=== PATIENT | male | born 1965 | race Caucasian/White ===

== ENCOUNTER 2016-07-30 11:36 | Emergency (ER) | payer OTHER ==
--- NOTE | ~2016-07-30 | EKG ---
PATIENT: HECTOR KNOWLES UNIT #: [id number] Ventricular Rate: 103 BPM Atrial Rate: 103 BPM P-R Interval: 132 ms QRS Duration: 86 ms Q-T Interval: 344 ms QTC Calculation(Bezet): 450 ms P [place]: 62 degrees Calculated R [place]: 67 degrees Calculated T [place]: 43 degrees Diagnosis Line: Sinus tachycardia Diagnosis Line: Otherwise normal ECG Diagnosis Line: Diagnosis Line: Confirmed by SPENCER ANTONIO MD ([id number]) on Diagnosis Line: 07/30/2016 3:51:10 PM INTERPRETING MD: MARISELA SAM
--- NOTE | ~2016-07-30 | CR72 ---
[facility] A Service of [facility] & [facility] RADIOLOGY TEXT RESULTS PATIENT: HECTOR KNOWLES LOCATION: [facility] : [birth year] UNIT #: [id number] AGE: [address]: Costa Morton MD SEX: M ORDER DR: [id number] [facility] [address] [place], [place] [address] [id number] MR#: [id number] #: [id number] NAME: HECTOR KNOWLES. : 1965 SEX: M STUDY DATE/TIME: 07/30/2016 14:13 UNIT: [facility] ROOM: STUDY DESCRIPTION: CR Chest Single View Portable Attending Physician: Costa Morton M.D. Ordering Physician: Costa Morton M.D. Primary Care Physician: Hunter Hagan M.D. MEDICAL IMAGING REPORT This report is preliminary unless electronic signature is present EXAM AP portable chest, 07/30. COMPARISON 12/06/10 HISTORY SUPPLIED Weakness, shortness of breath left-sided chest pain for 4 days. AP portable view is obtained. The cardiovascular configuration is normal and the lungs are clear. CONCLUSION Negative portable chest. Dictated by... Remy Herrera M.D. THIS IS AN ELECTRONICALLY VERIFIED REPORT Remy Herrera M.D. at 07/31/2016 5:02 PM SAMRA/john paul TD: 07/30/2016 18:13 JOB #: [id number] MEDICAL IMAGING REPORT Page 1 of 1 COPY
[~2016-07-30 11:36] MED LIST: METOPROLOL TAR25 MG PO
[2016-07-30 12:17] LABS: BASOPHIL% 0.5 % (0-2.5); EOSINOPHIL% 0.2 % (0.0-7.0); HEMATOCRIT 45.2 % (38.0-50.0); HEMOGLOBIN 15.2 gm/dL (13.0-16.0); LYMPHOCYTE% 16.7 % (17.0-45.0); MEAN CELL VOLUME 89.2 FL (83-96); MEAN CORPUSCULAR HEMOGLOBIN 30.1 PG (28-34); MEAN CORPUSCULAR HGB CONC 33.7 g/dL (30-36); MONOCYTE# 0.7 X10e3 (0-1.0); MONOCYTE% 11.1 % (3.0-12.0); NEUTROPHIL# 4.2 X10e3 (1.5-7.1); NEUTROPHIL% 71.5 % (40-75); PLATELET COUNT 261 X10e3 (140-420); RED BLOOD COUNT 5.07 X10e (3.90-5.60); RED CELL DISTRIBUTION WIDTH 13.3 % (11.0-15.5); WHITE BLOOD COUNT 5.9 X10e3 (4.0-10.5)
[2016-07-30 12:19] LABS: DIFF IND NO
[2016-07-30 12:40] LABS: BILIRUBIN, DIRECT 0.1 mg/dL (0.0-0.2); BILIRUBIN,INDIRECT 0.4 mg/dL (0.0-0.9); BILIRUBIN,TOTAL 0.5 mg/dL (0.2-2.0); CALCIUM SERUM 8.9 mg/dL (8.4-10.2); CREATININE SERUM 0.8 mg/dL (0.6-1.4); GLOM FILT RATE Estimated 104.2 mL/min (>60); POTASSIUM 3.8 mmol/L (3.5-5.1); PROTEIN TOTAL SERUM 7.6 g/dL (6.0-8.3)
== END 2016-07-30 15:45 | disposition home or self-care (01) ==
LOC: CED 11:36 → EDBD 13:33 → CED 15:45
PROVIDERS: Emergency Medicine
DX: S30.861A Insect bite (nonvenomous) of abdominal wall, initial encounter (principal); E16.2 Hypoglycemia, unspecified; I10 Essential (primary) hypertension; F41.9 Anxiety disorder, unspecified; F17.200 Nicotine dependence, unspecified, uncomplicated; I25.2 Old myocardial infarction; M79.1 Myalgia
CPT/HCPCS: 36415; 71010; 80048; 80076; 82947; 85025; 86618; 93005; 99283

== ENCOUNTER 2016-08-03 20:29 | Inpatient (IN) | payer MEDICARE, OTHER ==
--- NOTE | ~2016-08-03 | EKG ---
PATIENT: HECTOR KNOWLES UNIT #: [id number] Ventricular Rate: 96 BPM Atrial Rate: 96 BPM P-R Interval: 134 ms QRS Duration: 88 ms Q-T Interval: 322 ms QTC Calculation(Bezet): 406 ms P [place]: 59 degrees Calculated R [place]: 90 degrees Calculated T [place]: 31 degrees Diagnosis Line: Normal sinus rhythm Diagnosis Line: Rightward axis Diagnosis Line: Borderline ECG Diagnosis Line: When compared with ECG of 03-AUG-2016 21:13, Diagnosis Line: (unconfirmed) Diagnosis Line: Premature ventricular complexes are no longer Diagnosis Line: Present Diagnosis Line: Confirmed by EMILIE ELIZABETH MD ([id number]) on Diagnosis Line: 08/04/2016 10:17:59 PM INTERPRETING MD: VITALY
--- NOTE | ~2016-08-03 | HP ---
Unit #: [id number] #: [id number] Patient: HECTOR KNOWLES [id number] [address] [address] [id number] I MR#: [id number] NAME: HECTOR KNOWLES ROOM: [facility] Age: 51 Sex: M Admission Date: 08/04/2016 : 1965 Attending Physician: Taylor Montalvo M.D. Primary Care Physician: Hunter Hagan M.D. HISTORY AND PHYSICAL CHIEF COMPLAINT Chest pain, cough and blood in the sputum. HISTORY OF PRESENT ILLNESS The patient is a 51-year-old male who has a history of hypertension, questionable arrhythmias, arthritis, tobacco abuse and came with a history of hemoptysis. The patient came to the emergency room three days ago and was diagnosed with pneumonia and was given doxycycline. Yesterday morning he woke up and was coughing a lot and had a lot of blood in the cough. He started having a lot of pain in the left side of the chest and also shortness of breath. He came back to the emergency room and was admitted for community acquired pneumonia, hemoptysis and failed oral antibiotics. Even now the patient is short of breath and complaining of pain while coughing. He is not able to cough because of the sharp pain. He does complain of fever. He complains of chills. He also had nausea and vomiting two days ago and now at this time is stable. He does not complain of any abdominal pain. PAST MEDICAL HISTORY 1. History of hypertension. 2. History of questionable arrhythmias. 3. History of arthritis. 4. Tobacco abuse. PAST SURGICAL HISTORY 1. History of umbilical hernia surgery. 2. History of inguinal hernia surgery on the left side. 3. History of right ankle surgery. SOCIAL HISTORY The patient is a smoker. He smokes a half pack per day. He started at the age of 21. No history of alcohol abuse or drug abuse. FAMILY HISTORY The patient's mother has diabetes type 2. One of his brothers has fibromyalgia. The patient's dad had liver cancer and throat cancer. He was alcoholic. ALLERGIES No known drug allergies. According to him doxycycline was causing palpitations. HOME MEDICATIONS 1. Metoprolol. Unit #: [id number] #: [id number] Patient: HECTOR KNOWLES 2. The patient was on doxycycline. REVIEW OF SYSTEMS As per history of present illness. Additionally, there is no history of ear or throat problem at this time. No history of dizziness or syncopal episodes. There is trace pedal edema according to the patient. No history of numbness or tingling. No history of vision issues. The rest is as per history of present illness. PHYSICAL EXAMINATION GENERAL: The patient is lying in bed. He is trying to cough and holding the left side of his chest. He seems to be short of breath. VITALS: Blood pressure 101/64, respiratory rate 18, pulse 98, temperature 99.2, oxygen saturation 95% on room air. The patient's blood pressure earlier was 98/64. HEENT: Normocephalic. Eye movements are normal. Pale conjunctivae. NECK: Supple. No carotid bruit. Trachea is midline. No thyromegaly. CHEST: Fair air entry on the right side. On the left mid and lower lobe crackles are present. Decreased air entry. HEART: S1 and S2 positive. Regular rhythm. ABDOMEN: Soft. No tenderness. No rigidity. No rebound. EXTREMITIES: Trace edema. NEUROLOGIC: The patient is awake, alert and oriented times three. No focal neurological deficits. DIAGNOSTIC STUDIES IMAGING: Chest x-ray shows moderately dense infiltrate in the left mid and lower lung, probably in the lingula, which is new compared to 07/30/2016. LABORATORY: White blood cell count 8.2, hemoglobin 15.0, hematocrit 44.1, platelets 152. Lactic acid 1.4. Sodium 131, potassium 3.1, chloride 97, BUN 14, creatinine 0.9. Liver enzymes are normal. Troponin is less than 0.05. Urine drug screen positive for benzodiazepines, amphetamines and opiates. ASSESSMENT The patient is being admitted to the telemetry unit with 1. Community acquired pneumonia. 2. Hemoptysis. 3. Left chest pain, most likely pleuritic and musculoskeletal. 4. Hypokalemia. 5. Tobacco abuse. 6. Hypertension. PLAN Admit to telemetry unit. IV Rocephin 1 g q.24 h. and IV Zithromax 500 mg daily is being started. Blood cultures times two are being done. CT scan of the chest without contrast will be done. Lovenox 40 mg subcutaneous daily is being done. Dr. Alberts will be consulted. Procalcitonin level is being done. Labs will be repeated tomorrow morning. Potassium will be replaced. Symptomatically we are going to give him Tussionex for cough and pain control. Continue Tylenol on a p.r.n. basis. Tobacco cessation counseling has been done. The plan of care has been discussed with the patient at length. He does verbalize understanding. Unit #: [id number] #: [id number] Patient: HECTOR KNOWLES Dictated by Samira Marx TD: 08/04/2016 13:22 JOB #: [id number] HISTORY AND PHYSICAL Page 1 of 1 X Taylor Montalvo MD X HISTORY AND PHYSICAL
--- NOTE | ~2016-08-03 | CT57 ---
[facility] A Service of [facility] & [facility] RADIOLOGY TEXT RESULTS PATIENT: HECTOR KNOWLES LOCATION: [facility] 314-01 : [birth year] UNIT #: [id number] AGE: [address]: Taylor Montalvo MD SEX: M ORDER DR: [id number] [facility] [address] [place], [place] [address] [id number] I MR#: [id number] #: [id number] NAME: HECTOR KNOWLES. : 1965 SEX: M STUDY DATE/TIME: 08/04/2016 14:21 UNIT: [address] ROOM: [facility] STUDY DESCRIPTION: CT Chest Wo Cont Attending Physician: Taylor Montalvo M.D. Ordering Physician: Taylor Montalvo M.D. Primary Care Physician: Hunter Hagan M.D. MEDICAL IMAGING REPORT This report is preliminary unless electronic signature is present EXAM CT chest without contrast HISTORY Shortness of air and pneumonia today. Hemoptysis and left side chest pain. This CT exam was performed with one or more of the following radiation dose reduction techniques: automatic exposure control, adjustment of mA and/or kV according to patient size, and iterative reconstruction. FINDINGS CT chest without contrast demonstrates moderately extensive infiltrate in the posterior left upper lobe extending to the posterior lingula, including dense opacification of the posterior inferior margins of the lingula, corresponding to a similar finding on chest x-ray yesterday. There is a very small left pleural effusion and there is mild atelectasis in the posterior left lower lobe. Mild subpleural emphysema in the lung apices. Mildly enlarged subcarinal node measures 1.3 cm, and contiguous, mildly enlarged azygoesophageal recess node measures 1.4 cm. Additional small subcentimeter calcified mediastinal and left hilar nodes. Normal caliber thoracic aorta. Very small pericardial effusion. IMPRESSION 1. Extensive dense infiltrate in the left upper lobe and lingula corresponds to a similar finding on chest x-ray yesterday. This is nonspecific but considerations include pneumonia. Correlation the patient's history and symptoms is recommended and short-term followup chest x-ray is suggested. 2. Small left pleural effusion. 3. No additional infiltrates. Incidental mild atelectasis posterior left lower lobe. 4. Mild adenopathy in the subcarinal space and azygoesophageal recess. [facility] A Service of [facility] & [facility] RADIOLOGY TEXT RESULTS PATIENT: HECTOR KNOWLES LOCATION: [facility] 314-01 : [birth year] UNIT #: [id number] AGE: [address]: Taylor Montavlo MD SEX: M ORDER DR: These are nonspecific and could be reactive or inflammatory. Dictated by... William Gates M.D. THIS IS AN ELECTRONICALLY VERIFIED REPORT William Gates M.D. at 08/05/2016 3:02 PM ELAINE/ni TD: 08/05/2016 03:51 JOB #: [id number] MEDICAL IMAGING REPORT Page 1 of 1 COPY
--- NOTE | ~2016-08-03 | EKG ---
PATIENT: HECTOR KNOWLES UNIT #: [id number] Ventricular Rate: 110 BPM Atrial Rate: 110 BPM P-R Interval: 138 ms QRS Duration: 90 ms Q-T Interval: 310 ms QTC Calculation(Bezet): 419 ms P [place]: 58 degrees Calculated R [place]: 60 degrees Calculated T [place]: 38 degrees Diagnosis Line: Sinus tachycardia with occasional Premature Diagnosis Line: ventricular complexes Diagnosis Line: Otherwise normal ECG Diagnosis Line: When compared with ECG of 30-JUL-2016 12:04, Diagnosis Line: Premature ventricular complexes are now Present Diagnosis Line: Confirmed by EMILIE ELIZABETH MD ([id number]) on Diagnosis Line: 08/04/2016 10:06:09 PM INTERPRETING MD: VITALY
--- NOTE | ~2016-08-03 | CO ---
Unit #: [id number] #: [id number] Patient: HECTOR KNOWLES [id number] [facility]. [place], [place] [address] [id number] I MR#: [id number] NAME: HECTOR KNOWLES ROOM: 314 Age: 51 Sex: M Admission Date: 08/04/2016 : 1965 Attending Physician: Taylor Montalvo M.D. Primary Care Physician: Hunter Hagan M.D. Consultation Date: 08/04/2016 CONSULTATION REPORT REASON FOR CONSULTATION Scant hemoptysis, pneumonia. HISTORY OF PRESENT ILLNESS 51-year-old gentleman who denies any history of lung disease, has had a several day history of increasing shortness of breath. He then has had scant hemoptysis over the last two or three days. he apparently came to the emergency room three days ago, diagnosed with pneumonia, given doxycycline. He had worsening symptoms and re-presented to the hospital where he was admitted. Now, his chest x-ray showed a definite left sided infiltrate. CAT scan was also performed. It shows a fairly densely consolidated area with less densely consolidation lingula. It has the appearance of a pneumonia. The patient has significant cough, shortness of breath and wheezing. PAST MEDICAL HISTORY Remarkable for hypertension, arthritis, ongoing active tobacco use. He has been at [facility] in the past for depression and substance use. MEDICATIONS Medications at home: 1. Metoprolol. 2. Recently given doxycycline. ALLERGIES No known medical allergies. SOCIAL HISTORY He smokes a pack of cigarettes a day. He does not drink. He does do meth. He said he last did meth about a week ago and he does smoke marijuana. FAMILY HISTORY Emphysema is present in his family. REVIEW OF SYSTEMS No fever, chills. He has had scant hemoptysis but that has resolved. Now, he is not producing any sputum. He does have this anterior left sided pain with inspiration. No anginal chest pain, palpitations. He did have nausea, vomiting and emesis about five days ago but that has resolved. He has no difficulty swallowing such as choking or coughing. No melena, hematochezia. He has noticed no blood in his urine. No focal weakness or paresthesia. He has had some minimal bilateral swelling of his feet. Further review of systems negative. Unit #: [id number] #: [id number] Patient: HECTOR KNOWLES PHYSICAL EXAMINATION GENERAL: Reveals a gentleman who is somewhat disheveled, in no acute distress. VITAL SIGNS: He is afebrile. Pulse is 106, respiratory rate 20, blood pressure is 107/78. 5 foot 11, 170 pounds. HEENT: Pupils equal, round, reactive to light. Sclerae anicteric. Head atraumatic. Neck supple. No supraclavicular or cervical adenopathy appreciated. Mucous membranes moist. He is edentulous. CHEST: Wheeze throughout. Scattered rhonchi. A few crackles. CARDIAC EXAMINATION: Regular rate and rhythm. No pathologic murmur, rub or gallop. ABDOMEN: Soft, nontender. No hepatomegaly or rebound. EXTREMITIES: No clubbing, cyanosis or edema. No calf tenderness. SKIN: Warm and dry without rash or diaphoresis. NEUROLOGICAL: Grossly intact. No focal muscle or sensory deficits. DIAGNOSTIC STUDIES IMAGING: Chest x-ray with left sided infiltrates. CT scan with significant bullous emphysema, left sided pneumonia although there is an area of dense consolidation. Although it does have air bronchograms, this area will have to be followed to clearance to exclude underlying mass. LABORATORY: BUN is 14, creatinine 0.9, potassium is 3.1. Lactic acid 1.2, INR 1.0. D-dimer was elevated at 1257. Cardiac enzymes negative. White blood cell count 8.2, hemoglobin 15, platelet count is 152. Tox screen - benzodiazepines, amphetamines and opiates although I do not think he has been prescribed any of those. Blood cultures performed and are pending. Sputum has been canceled as he cannot produce sputum. CARDIOVASCULAR: Rhythm strips have been sinus. IMPRESSION 1. Scant hemoptysis, most likely secondary to pneumonia. 2. Pneumonia, possibly pneumococcal. 3. Emphysema. 4. Tobacco abuse. 5. Polysubstance abuse. 6. History of depression. 7. Hypertension. PLAN Agree with current antibiotics. Will check legionella and Strep urine antigens. Treatment of his COPD. I will start steroids, nebulized bronchodilators and Dulera. I will check a urine for primarily hematuria although I doubt this represents pulmonary renal syndrome. I will check an alpha-1 antitrypsin level. Ultimately, he will need a repeat CAT scan in about two months to ensure clearance of his infiltrate. Also, he will need a bronchoscopy once his pulmonary status is better. This could be performed as an outpatient. Thank you very much for allowing me to participate in the care of Mr. Knowles. Unit #: [id number] #: [id number] Patient: HECTOR KNOWLES Dictated by... Samira Hurtado/mary TD: 08/05/2016 05:47 JOB #: [id number] CONSULTATION REPORT Page 1 of 1 X Shyam Alberts MD X CONSULTATION REPORT
--- NOTE | ~2016-08-03 | DS ---
Unit #: [id number] #: [id number] Patient: HECTOR KNOWLES [id number] [address] [address] [id number] I MR#: [id number] NAME: HECTOR KNOWLES. ROOM: 306 Age: 51 Sex: M Admission Date: 08/04/2016 : 1965 Discharge Date: 08/08/2016 Attending Physician: Taylor Montalvo M.D. Primary Care Physician: Hunter Hagan M.D. DISCHARGE SUMMARY FINAL DIAGNOSES 1. Hemoptysis most likely secondary to pneumonia. 2. Community-acquired pneumonia. 3. Status post bronchoscopy. No organism in the culture yet. 4. Emphysema. 5. Tobacco abuse. 6. Anxiety disorder. DISCHARGE MEDICATIONS 1. Symbicort 160 mcg two puffs twice a day. 2. ProAir two puffs q.i.d. p.r.n. 3. Prednisone 20 mg two tablets p.o. daily for five days. 4. Zithromax 500 mg daily. Dispense for four days. 5. Ceftin 500 mg b.i.d. for five days. CONSULTATION DURING HOSPITALIZATION Dr. Alberts from Pulmonary Services. LAB WORKUP ON DISCHARGE CBC shows WBC 12.3, hemoglobin 12.4, hematocrit 36.8, platelet count 319. BMP shows sodium 136, potassium 3.9, chloride 108, BUN 9, creatinine 0.7, calcium 7.9. Bronch cultures show far is no growth. Cytology shows inflammatory cells. Negative for malignancy. Alpha I antitrypsin is 228, which is elevated. CT scan of the chest without contrast was done which showed extensive dense infiltrate in the left upper lobe and lingula corresponding to chest x-ray. A small left pleural effusion is also seen. Legionella antigen in the urine was negative. Strep pneumoniae antigen in the urine was negative. Troponin less than 0.03. Lactic acid 1.2. HOSPITAL COURSE Mr. Hector Knowles is a 51-year-old male who was admitted to the hospital on August 04 with chest pain, cough and blood in the sputum. The patient was diagnosed with community-acquired pneumonia with hemoptysis and left chest pain. The patient was started on IV antibiotics. CONTINUATION OF HOSPITAL COURSE The patient was seen by Dr. Alberts. The patient will need repeat CT scan done in six to eight weeks. Patient will also need PFT as outpatient. The patient did receive IV Solu-Medrol during hospitalization but that has been changed to prednisone 40 mg daily. Tobacco cessation counseling has been done. Sputum culture showed no organism. Bronchoscopy was done Unit #: [id number] #: [id number] Patient: HECTOR KNOWLES which is stable. The patient's hemoptysis is resolved. DISCHARGE INSTRUCTIONS The patient is being discharged home in stable condition. Follow up with primary care provider in one week. Follow up with Dr. Alberts in two to three weeks. MEDICATIONS Prescription has been written for patient which included: 1. Symbicort b.i.d. 2. ProAir p.r.n. 3. Ceftin b.i.d. 4. Zithromax daily. 5. Prednisone tapering dose. 6. Norvasc 5 mg daily. The patient verbalized understanding. Radha TD: 08/09/2016 08:36 JOB #: [id number] Dictated by... Samira Marx TD: 08/26/2016 11:24 JOB #: [id number] DISCHARGE SUMMARY Page 1 of 1 X Taylor Montalvo MD X DISCHARGE SUMMARY
--- NOTE | ~2016-08-03 | OR ---
Unit #: [id number] #: [id number] Patient: HECTOR KNOWLES [id number] [address] [address] [id number] I MR#: [id number] NAME: HECTOR KNOWLES ROOM: [facility] Date of Procedure: 08/06/2016 Admission Date: 08/04/2016 Surgeon: Shyam Alberts M.D. : 1965 Attending Physician: Taylor Montalvo M.D. Primary Care Physician: Hunter Hagan M.D. OPERATIVE REPORT PROCEDURE PERFORMED Flexible fiberoptic bronchoscopy. INDICATION FOR PROCEDURE Hemoptysis and abnormal CT. FINDINGS No endobronchial lesion seen. Some serosanguineous fluid primarily from left side. SEDATION MAC. COMPLICATION Zero. CONDITION AFTER PROCEDURE Stable to recovery room. DESCRIPTION OF PROCEDURE The patient was brought to the endoscopy suite and monitored for heart rate, blood pressure, saturations, and end-tidal CO2. Sedation with MAC. Please see their notes for details. Anesthetized with 2% lidocaine in both nares. Viscous lidocaine was applied to his right naris. Bronchoscope was introduced without difficulty. Vocal cords were visualized. There were normal configuration and motion, anesthetized x2. Main trachea was intubated. There were some serosanguineous, thin secretions that were removed. They seem to be primarily from the left side. No endobronchial lesions were seen. All subsegments were identified. BAL was performed in the lingular segment. 60 mL aliquots were instilled x2 with delgadillo return. It was serosanguineous in nature. It did seem to clear on the second syringe, but only mildly. The bronchoscope was taken out of a wedge position. Some of the BAL fluid was recovered in bronchial washings. Again, no active bleeding was identified, and no endobronchial lesions were seen. The bronchoscope was removed without difficulty. The patient was in good condition postprocedure. Dictated by... Shyam Alberts M.D. Unit #: [id number] #: [id number] Patient: HECTOR KNOWLES WOL/modl TD: 08/07/2016 07:07 JOB #: [id number] OPERATIVE REPORT Page 1 of 1 X Shyam Alberts MD PROCEDURE OPERATIVE NOTE
--- NOTE | ~2016-08-03 | CR72 ---
[facility] A Service of [facility] & [facility] RADIOLOGY TEXT RESULTS PATIENT: HECTOR KNOWLES LOCATION: [facility] 314- : [birth year] UNIT #: [id number] AGE: [address]: Taylor Montalvo MD SEX: M ORDER DR: [id number] [facility] [address] [place], [place] [address] [id number] I MR#: [id number] #: [id number] NAME: HECTOR KNOWLES. : 1965 SEX: M STUDY DATE/TIME: 08/03/2016 21:33 UNIT: [address] ROOM: [facility] STUDY DESCRIPTION: CR Chest Single View Portable Attending Physician: Taylor Montalvo M.D. Ordering Physician: Hilario Richardson M.D. Primary Care Physician: Hunter Hagan M.D. MEDICAL IMAGING REPORT This report is preliminary unless electronic signature is present EXAM Portable chest. HISTORY Shortness of air and cough for 5 days. FINDINGS Moderately dense infiltrate in the left mid and lower lung, probably in the lingula, is new compared to 07/30/2016. Although nonspecific, this is concerning for pneumonia given its rapid development. There is also a probable very small left pleural effusion. The right lung is clear. The cardiac size and pulmonary vascularity are normal. Dictated by... William Gates M.D. THIS IS AN ELECTRONICALLY VERIFIED REPORT William Gates M.D. at 08/04/2016 10:35 PM DFL/sanjay TD: 08/04/2016 08:57 JOB #: [id number] MEDICAL IMAGING REPORT Page 1 of 1 COPY
[2016-08-03 21:41] LABS: BASOPHIL% 0.3 % (0-2.5); HEMATOCRIT 44.1 % (38.0-50.0); LYMPHOCYTE% 12.3 % (17.0-45.0); MEAN CELL VOLUME 86.8 FL (83-96); MEAN CORPUSCULAR HEMOGLOBIN 29.6 PG (28-34); MEAN CORPUSCULAR HGB CONC 34.1 g/dL (30-36); MONOCYTE# 0.5 X10e3 (0-1.0); MONOCYTE% 5.9 % (3.0-12.0); NEUTROPHIL# 6.7 X10e3 (1.5-7.1); NEUTROPHIL% 81.5 % (40-75); PLATELET COUNT 152 X10e3 (140-420); RED BLOOD COUNT 5.08 X10e (3.90-5.60); RED CELL DISTRIBUTION WIDTH 13.9 % (11.0-15.5); WHITE BLOOD COUNT 8.2 X10e3 (4.0-10.5)
[2016-08-03 21:49] LABS: DIFF IND NO
[2016-08-03 22:00] LABS: PARTIAL THROMBOPLASTIN TIME 30.6 SECONDS (23.5-31.3); PROTHROMBIN TIME (PATIENT) 10.7 SECONDS (9.6-11.5)
[2016-08-03 22:13] LABS: ALBUMIN SERUM 3.4 g/dL (3.5-5.0); BILIRUBIN, DIRECT 0.1 mg/dL (0.0-0.2); BILIRUBIN,INDIRECT 0.7 mg/dL (0.0-0.9); BILIRUBIN,TOTAL 0.8 mg/dL (0.2-2.0); BUN/CREATININE RATIO 15.55; CALCIUM SERUM 8.5 mg/dL (8.4-10.2); CREATININE SERUM 0.9 mg/dL (0.6-1.4); GLOM FILT RATE Estimated 99.2 mL/min (>60); POTASSIUM 3.1 mmol/L (3.5-5.1); PROTEIN TOTAL SERUM 7.4 g/dL (6.0-8.3)
[2016-08-03 23:01] LABS: POC - CKMB <1.0 ng/mL (0.0-7.9); POC - TROPONIN <0.05 ng/mL (<=0.05)
[2016-08-04 01:02] LABS: AMPHETAMINE POS (NEG); BARBITURATES NEG (NEG); BENZODIAZEPINES POS (NEG); COCAINE NEG (NEG); MARIJUANA NEG (NEG); OPIATES POS (NEG); TRICYCLIC ANTIDEPRESSANTS NEG (NEG); U METHADONE NEG (NEG)
[2016-08-04 04:56] LABS: CK TOTAL 34 IU/L (36-174)
[2016-08-04 21:20] LABS: URINE SOURCE CLEAN CATCH
[2016-08-04 21:25] LABS: URINE APPEARANCE CLEAR; URINE BILIRUBIN NEG (NEG); URINE BLOOD NEG (NEG); URINE COLOR YELLOW; URINE GLUCOSE NEG (NEG); URINE KETONE NEG (NEG); URINE LEUKOCYTE ESTERASE NEG (NEG); URINE NITRATE NEG (NEG); URINE PROTEIN NEG (NEG); URINE SPECIFIC GRAVITY 1.003 (1.003-1.035); URINE UROBILINOGEN 0.2 MG/DL (NEG)
[2016-08-05 05:13] LABS: HEMATOCRIT 39.9 % (38.0-50.0); HEMOGLOBIN 13.3 gm/dL (13.0-16.0); MEAN CELL VOLUME 87.4 FL (83-96); MEAN CORPUSCULAR HEMOGLOBIN 29.1 PG (28-34); MEAN CORPUSCULAR HGB CONC 33.3 g/dL (30-36); MEAN PLATELET VOLUME 7.4 FL (6.5-11.5); RED BLOOD COUNT 4.57 X10e (3.90-5.60)
[2016-08-05 05:17] LABS: WHITE BLOOD COUNT 3.7 X10e3 (4.0-10.5)
[2016-08-05 05:45] LABS: PROCALCITONIN 0.42 NG/ML
[2016-08-05 05:52] LABS: BUN/CREATININE RATIO 12.85; CALCIUM SERUM 7.9 mg/dL (8.4-10.2); CREATININE SERUM 0.7 mg/dL (0.6-1.4); GLOM FILT RATE Estimated 110.1 mL/min (>60); POTASSIUM 3.9 mmol/L (3.5-5.1)
[2016-08-05 08:30] LABS: LEGIONELLA AG URINE NEG (NEG)
[2016-08-06 16:01] LABS: BODY FLUID APPEARANCE BLOODY; BODY FLUID SOURCE BRONCHIAL LAVAGE
[2016-08-07 06:27] LABS: HEMATOCRIT 36.8 % (38.0-50.0); HEMOGLOBIN 12.4 gm/dL (13.0-16.0); MEAN CELL VOLUME 86.2 FL (83-96); MEAN CORPUSCULAR HGB CONC 33.6 g/dL (30-36); MEAN PLATELET VOLUME 7.2 FL (6.5-11.5); RED BLOOD COUNT 4.27 X10e (3.90-5.60); RED CELL DISTRIBUTION WIDTH 14.2 % (11.0-15.5); WHITE BLOOD COUNT 12.3 X10e3 (4.0-10.5)
[2016-08-08] MEDS ORDERED: DELTASONE20 MG PO (17:20)
[2016-08-08] MEDS ORDERED: APAP325 M1 PO (17:21)
[2016-08-08] MEDS ORDERED: ENDOCET 5-3251 EACH PO (17:22)
[2016-08-08] MEDS ORDERED: SYMBICORT INH (17:23)
[2016-08-08] MEDS ORDERED: PROAIR RESPICL90 MCG INH (17:26)
[2016-08-08] MEDS ORDERED: ZITHROMAX500 MG PO (17:28)
[2016-08-08] MEDS ORDERED: CEFTIN PO (17:28)
[2016-08-08] MEDS ORDERED: NORVASC PO (17:30)
== END 2016-08-08 19:25 | disposition home or self-care (01) | DRG 166 ==
LOC: CED 20:29 → EDBD 08-04 00:13 → C3A PCU 08-04 00:13 → CEDOF 08-04 00:13 → CED 08-04 00:37 → CEDOF 08-04 02:56 → C3A PCU 08-04 02:56 → EDBD 08-08 19:25 → C3A PCU 08-08 19:25
PROVIDERS: Emergency Medicine; Internal Medicine; Physician Assistant Medical
PROC: 0B9J8ZX Drainage of Left Lower Lung Lobe, Via Natural or Artificial Opening Endoscopic, Diagnostic (ICD-10-PCS; principal; 2016-08-06 13:30)
PROC: 0BBB8ZX Excision of Left Lower Lobe Bronchus, Via Natural or Artificial Opening Endoscopic, Diagnostic (ICD-10-PCS; 2016-08-06 13:30)
DX: J44.0 Chronic obstructive pulmonary disease with (acute) lower respiratory infection (principal); J18.9 Pneumonia, unspecified organism; R04.2 Hemoptysis; I10 Essential (primary) hypertension; M19.90 Unspecified osteoarthritis, unspecified site; F17.210 Nicotine dependence, cigarettes, uncomplicated; R07.89 Other chest pain; E87.6 Hypokalemia; F19.10 Other psychoactive substance abuse, uncomplicated; F32.9 Major depressive disorder, single episode, unspecified
CPT/HCPCS: 36415; 71010; 71250; 80048; 80076; 80307; 81003; 82103; 82104; 82308; 82550; 82553; 83605; 84484; 85025; 85027; 85379; 85610; 85730; 87040; 87070; 87102; 87116; 87205; 87206; 87252; 87254; 87278; 87449; 87899; 88108; 88305; 89051; 93005; 94640; 94760; 96361; 96365; 96367; 96375; 99285; C9113; J0171; J0456; J0696; J1650; J1885; J2250; J2920; J3490